=== PATIENT | female | born 1975 | race Caucasian/White ===

== ENCOUNTER 2018-08-14 08:01 | Emergency (ER) | payer MEDICAID ==
[~2018-08-14] VITALS: Ht 144.8 cm; Wt 68.7 kg
[2018-08-14 08:08] VITALS: Ht 144.8 cm; Wt 68.7 kg
[2018-08-14 10:22] VITALS: BP 138/86
== END 2018-08-14 10:22 | disposition home or self-care (01) ==
LOC: ED 08:01
DX: M54.41 Lumbago with sciatica, right side (principal); M25.561 Pain in right knee; Z90.49 Acquired absence of other specified parts of digestive tract; Z98.890 Other specified postprocedural states; Z98.51 Tubal ligation status
CPT/HCPCS: J1885; J7030